=== PATIENT | female | born 1930 | race Hispanic/Latino ===

== ENCOUNTER 2017-09-05 08:53 | Day surgery (SDC) | payer OTHER ==
[2017-09-04 12:21] VITALS: BP 140/67
[2017-09-04 12:25] LABS: BASOPHILS % (AUTO) 1.1 % (0.0-5.0); EOSINOPHILS % (AUTO) 1.8 % (0.0-8.0); HEMATOCRIT 40.4 % (36-48); LYMPHOCYTES % (AUTO) 16.2 % (21.0-51.0); MEAN CORPUSCULAR HGB CONC 32.8 g/dL (32.0-36.0); MEAN CORPUSCULAR VOLUME 85.4 fL (79-99); MONOCYTES % (AUTO) 9.2 % (3.0-13.0); NEUTROPHILS % (AUTO) 71.7 % (40.0-77.0); PLATELET COUNT (AUTO) 252 K/uL (130-400); RED BLOOD CELL COUNT(AUTO) 4.73 MIL/uL (4.00-5.50); RED CELL DISTRIBUTION WIDTH 15.5 % (11.0-15.5); WHITE BLOOD COUNT (AUTO) 9.1 K/uL (4.8-10.8)
[2017-09-04 12:35] LABS: CREATININE 1.7 mg/dL (0.5-1.5); POTASSIUM 5.5 mmol/L (3.5-5.1)
[2017-09-04 12:38] LABS: INR 1.29 (0.85-1.15); PARTIAL THROMBOPLASTIN TIME 33.1 SEC (26.3-35.5); PROTHROMBIN TIME 13.5 SEC (9.6-11.6)
[~2017-09-05] VITALS: Ht 181.6 cm; Wt 56.9 kg
[~2017-09-05 08:53] MED LIST: CEPH500T PO; DIGO125T17 PO; DRON400T2 PO; FURO20TA6 PO; FURO40TA5 PO; FURO40TA7 PO; IPRA3AMP24 NEB; METO-408 PO; POTA20TA82 PO; RIVA15TA PO; SODIUM CHLORIDE 0.9% 1000ML 1,000 ML IV SCH
[2017-09-05 09:00] VITALS: BP 161/70
== END 2017-09-05 12:45 | disposition home or self-care (01) ==
LOC: DAH 08:53
PROVIDERS: ATTEND Internal Medicine Cardiovascular Disease
DX: I48.92 Unspecified atrial flutter (principal); I48.91 Unspecified atrial fibrillation; Z98.890 Other specified postprocedural states; Z79.899 Other long term (current) drug therapy; I44.2 Atrioventricular block, complete; J44.9 Chronic obstructive pulmonary disease, unspecified; E78.5 Hyperlipidemia, unspecified; N18.3 Chronic kidney disease, stage 3 (moderate)
CPT/HCPCS: 36415; 80048; 85025; 85610; 85730; 92960; 93005; A4606; J7030; 99156

== ENCOUNTER 2018-05-07 00:27 | Emergency (ER) | payer OTHER ==
[~2018-05-07 00:27] MED LIST changes: -FURO40TA5 PO; -SODIUM CHLORIDE 0.9% 1000ML 1,000 ML IV SCH
[2018-05-07 00:50] LABS: BASOPHILS % (AUTO) 0.9 % (0.0-5.0); EOSINOPHILS % (AUTO) 1.3 % (0.0-8.0); HEMATOCRIT 36.3 % (36-48); LYMPHOCYTES % (AUTO) 7.3 % (21.0-51.0); MEAN CORPUSCULAR HEMOGLOBIN 28.2 pg (27.0-33.0); MEAN CORPUSCULAR HGB CONC 33.2 g/dL (32.0-36.0); MONOCYTES % (AUTO) 4.3 % (3.0-13.0); NEUTROPHILS % (AUTO) 86.2 % (40.0-77.0); NUCLEATED RED BLOOD CELLS 0.2 % (0.0-0.19); PLATELET COUNT (AUTO) 103 K/uL (130-400); RED BLOOD CELL COUNT(AUTO) 4.27 MIL/uL (4.00-5.50); RED CELL DISTRIBUTION WIDTH 15.3 % (11.0-15.5); WHITE BLOOD COUNT (AUTO) 8.2 K/uL (4.8-10.8)
[2018-05-07 01:03] LABS: CREATININE 1.9 mg/dL (0.5-1.5); POTASSIUM 4.2 mmol/L (3.5-5.1)
[2018-05-07 01:08] LABS: ALBUMIN 2.9 g/dL (3.5-5.0); BILIRUBIN,TOTAL 0.9 mg/dL (0.2-1.0); TOTAL PROTEIN, SERUM 6.4 g/dL (6.0-8.3)
[2018-05-07 01:54] LABS: APPEARANCE,URINE Turbid (CLEAR); BILIRUBIN,URINE Negative (NEGATIVE); COLOR,URINE Yellow (YELLOW); GLUCOSE, URINE (UA) Negative (NEGATIVE); KETONES,URINE Negative (NEGATIVE); LEUKOCYTE ESTERASE ,URINE Large (NEGATIVE); NITRATE,URINE Positive (NEGATIVE); OCCULT BLOOD,URINE Large (NEGATIVE); PROTEIN,URINE POS 1+ (NEGATIVE)
[2018-05-07 01:57] LABS: B-TYPE NATRIURETIC PEPTIDE 478 pg/mL (0-100)
[2018-05-07] MEDS ORDERED: OSELTAMIVIR PHOSPHATE 75 MG CAP ONE (02:30)
[2018-05-07 02:31] LABS: BACTERIA,URINE Many /HPF (None Seen); WBC,URINE TNTC /HPF (0-1)
[2018-05-07] MEDS ORDERED: CEFTRIAXONE SODIUM 1 GM ONE (03:00)
== END 2018-05-07 03:44 | disposition home or self-care (01) ==
LOC: EDH 00:27
DX: J10.1 Influenza due to other identified influenza virus with other respiratory manifestations (principal); N30.00 Acute cystitis without hematuria; I48.91 Unspecified atrial fibrillation; N18.3 Chronic kidney disease, stage 3 (moderate); J44.9 Chronic obstructive pulmonary disease, unspecified; F32.9 Major depressive disorder, single episode, unspecified; E78.5 Hyperlipidemia, unspecified; Z90.49 Acquired absence of other specified parts of digestive tract; Z96.649 Presence of unspecified artificial hip joint
CPT/HCPCS: 36415; 71046; 80053; 81001; 82550; 83880; 84484; 85025; 87077; 87088; 87186; 87804 ×2; 87880; 93005; 96374; 99284; J0696

== ENCOUNTER 2018-08-16 15:40 | Inpatient (IN) | payer OTHER ==
[~2018-08-16] VITALS: Ht 149.9 cm; Wt 56.4 kg
[2018-08-16 16:25] LABS: BASOPHILS % (AUTO) 0.3 % (0.0-5.0); EOSINOPHILS % (AUTO) 2.8 % (0.0-8.0); HEMATOCRIT 36.5 % (36-48); LYMPHOCYTES % (AUTO) 18.2 % (21.0-51.0); MEAN CORPUSCULAR HEMOGLOBIN 28.5 pg (27.0-33.0); MEAN CORPUSCULAR HGB CONC 33.4 g/dL (32.0-36.0); MEAN CORPUSCULAR VOLUME 85.4 fL (79-99); MONOCYTES % (AUTO) 10.5 % (3.0-13.0); NEUTROPHILS % (AUTO) 68.2 % (40.0-77.0); PLATELET COUNT (AUTO) 148 K/uL (130-400); RED BLOOD CELL COUNT(AUTO) 4.28 MIL/uL (4.00-5.50); RED CELL DISTRIBUTION WIDTH 16.3 % (11.0-15.5); WHITE BLOOD COUNT (AUTO) 6.2 K/uL (4.8-10.8)
[2018-08-16] MEDS ORDERED: ALBUTEROL SULFATE 0.083% 2.5 MG/3 ML INH IH ONE (16:26)
[2018-08-16 16:40] LABS: CREATININE 1.4 mg/dL (0.5-1.5); INR 0.99 (0.85-1.15); PARTIAL THROMBOPLASTIN TIME 28.2 SEC (26.3-35.5); POTASSIUM 5.1 mmol/L (3.5-5.1); PROTHROMBIN TIME 10.4 SEC (9.6-11.6)
[2018-08-16 16:45] LABS: ALBUMIN 3.3 g/dL (3.5-5.0); BILIRUBIN,TOTAL 0.4 mg/dL (0.2-1.0); TOTAL PROTEIN, SERUM 6.2 g/dL (6.0-8.3)
[2018-08-16] MEDS ORDERED: AZITHROMYCIN 250 MG TABLET PO ONE (17:24)
[2018-08-16] MEDS ORDERED: FUROSEMIDE 10 MG/ML 2ML VIAL ONE (17:24)
[2018-08-16] MEDS ORDERED: CEFTRIAXONE SODIUM 1 GM ONE (17:24)
[2018-08-16 17:39] LABS: APPEARANCE,URINE Clear (CLEAR); BILIRUBIN,URINE Negative (NEGATIVE); COLOR,URINE Yellow (YELLOW); GLUCOSE, URINE (UA) Negative (NEGATIVE); KETONES,URINE Negative (NEGATIVE); LEUKOCYTE ESTERASE ,URINE Moderate (NEGATIVE); NITRATE,URINE Negative (NEGATIVE); OCCULT BLOOD,URINE Nonhemolyzed Trace (NEGATIVE); PROTEIN,URINE Negative (NEGATIVE)
[2018-08-16] MEDS ORDERED: ENOXAPARIN SODIUM 30 MG/0.3 ML SQ ONE (17:50)
[2018-08-16 17:51] LABS: BACTERIA,URINE Few /HPF (None Seen); RBC,URINE 0-1 /HPF (0-1); SQUAMOUS EPITHELIAL CELL,UR 0-2 /HPF (0-2)
[2018-08-16] MEDS ORDERED: SODIUM CHLORIDE 0.9% 10 ML VIAL IVP PRN (18:45)
[2018-08-16] MEDS ORDERED: ACETAMINOPHEN 325 MG TAB PO PRN (18:45)
[2018-08-16] MEDS ORDERED: IPRATROPIUM/ALBUTEROL SULFATE 3 ML SOLUTION IH PRN (18:45)
[2018-08-16] MEDS ORDERED: GLUCAGON 1MG KIT 1 MG ML IM PRN (19:00)
[2018-08-16] MEDS ORDERED: DEXTROSE 50%-WATER 50 ML DISP.SYRIN IV PRN (19:00)
[2018-08-16] MEDS ORDERED: APIXABAN 2.5 MG TABLET PO ONE (19:29)
[2018-08-16] MEDS: INSULIN R PO SS1 SQ SCH (21:00)
[2018-08-16 22:58] VITALS: BP 145/74
[2018-08-16] MEDS: IPRATROPIUM/ALBUTEROL SULFATE 3 ML SOLUTION IH SCH (23:00)
[2018-08-16] MEDS ORDERED: DRON400T2 PO (23:01)
[2018-08-16] MEDS ORDERED: APIX2.5T PO (23:02)
[2018-08-17 00:11] VITALS: BP 145/74
[2018-08-17 05:20] VITALS: BP 122/49
[2018-08-17] MEDS: INSULIN R PO SS1 SQ SCH (06:10)
[2018-08-17] MEDS: IPRATROPIUM/ALBUTEROL SULFATE 3 ML SOLUTION IH SCH ×4 (06:18→23:11)
[2018-08-17 08:00] VITALS: BP 149/52
[2018-08-17] MEDS ORDERED: ENOXAPARIN SODIUM 30 MG/0.3 ML SQ SCH (09:00)
[2018-08-17] MEDS: ***HM***Metoprolol Succinate 25 MG PO SCH (09:00)
[2018-08-17] MEDS: APIXABAN 2.5 MG TABLET PO SCH ×2 (09:13→20:49)
[2018-08-17] MEDS: CEFTRIAXONE SODIUM 1 GM IVP SCH (09:14)
[2018-08-17] MEDS: AZITHROMYCIN 500MG+NS 250ML 250 ML IV SCH (09:14)
[2018-08-17] MEDS: METHYLPREDNISOLONE SOD SUCC 125MG/2ML VIAL IVP SCH ×2 (09:15→20:49)
[2018-08-17 12:00] VITALS: BP 110/77
--- NOTE | 2018-08-17 14:58 | NUR ---
Initial: Met with pt and dtr (Kathryn) this afternoon to discuss dcp. Pt states that she lives w her son. Prior to admission she was independent w ambulation and ADLs. She has at home a nebulizer, walker, cane and wc if needed. Per pt her dtr provides transportation where needed. Pt states that she feels safe and comfortable to return home at [place]. Will continue to follow and wait for Md recommendations. Addendum: 08/17/18 at 1501 by PEDRO QUINTERO CM Amended: Links added.
[2018-08-17 16:00] VITALS: BP 125/62
[2018-08-17 19:15] VITALS: BP 132/65
[2018-08-18] VITALS (7 sets, daily range): BP systolic 102–149; BP diastolic 45–65
[2018-08-18 05:21] LABS: HEMATOCRIT 33.1 % (36-48); MEAN CORPUSCULAR HEMOGLOBIN 28.6 pg (27.0-33.0); MEAN CORPUSCULAR HGB CONC 33.6 g/dL (32.0-36.0); MEAN CORPUSCULAR VOLUME 85.2 fL (79-99); PLATELET COUNT (AUTO) 145 K/uL (130-400); RED BLOOD CELL COUNT(AUTO) 3.89 MIL/uL (4.00-5.50); RED CELL DISTRIBUTION WIDTH 16.4 % (11.0-15.5); WHITE BLOOD COUNT (AUTO) 10.4 K/uL (4.8-10.8)
[2018-08-18 05:32] LABS: CREATININE 1.9 mg/dL (0.5-1.5); POTASSIUM 4.3 mmol/L (3.5-5.1)
[2018-08-18] MEDS: INSULIN HUMULIN R 100 UNIT/ML 3ML SQ SCH (06:07)
[2018-08-18] MEDS: IPRATROPIUM/ALBUTEROL SULFATE 3 ML SOLUTION IH SCH ×4 (06:17→23:22)
--- NOTE | 2018-08-18 07:30 | NUR ---
DR. SCHWAB ON TO SEE PT. WANTS SERVICES TRANSFERRED OVER TO DR. DARDEN,
[2018-08-18] MEDS: AZITHROMYCIN 500MG+NS 250ML 250 ML IV SCH (08:02)
[2018-08-18] MEDS: CEFTRIAXONE SODIUM 1 GM IVP SCH (08:03)
[2018-08-18] MEDS: APIXABAN 2.5 MG TABLET PO SCH ×2 (08:03→20:19)
[2018-08-18] MEDS ORDERED: DIGOXIN 125 MCG TABLET PO SCH (09:00)
[2018-08-18] MEDS: ***HM***Metoprolol Succinate 25 MG PO SCH (09:00)
[2018-08-18] MEDS: DRONEDARONE HYDROCHLORIDE 400 MG TABLET PO SCH ×2 (17:00→17:03)
--- NOTE | 2018-08-18 18:00 | NUR ---
SHIFT ASSESSMENT. UP AD OSWALDO IN ROOM, NO C/O WHATSOEVER. FAMILY MEMBER AT BEDSIDE AT ALL TIMES.
[2018-08-19 00:22] VITALS: BP 130/60
[2018-08-19 04:30] VITALS: BP 124/60
[2018-08-19] MEDS: INSULIN HUMULIN R 100 UNIT/ML 3ML SQ SCH (06:00)
[2018-08-19] MEDS: IPRATROPIUM/ALBUTEROL SULFATE 3 ML SOLUTION IH SCH ×2 (07:02→11:08)
[2018-08-19 07:30] VITALS: BP 134/65
--- NOTE | 2018-08-19 07:40 | NUR ---
ALERT AND STABLE, MADE NO COMPLAINT. FAMILY AT THE BEDSIDE.
[2018-08-19] MEDS: AZITHROMYCIN 500MG+NS 250ML 250 ML IV SCH (08:25)
[2018-08-19] MEDS: APIXABAN 2.5 MG TABLET PO SCH (08:25)
[2018-08-19] MEDS: DRONEDARONE HYDROCHLORIDE 400 MG TABLET PO SCH (08:25)
[2018-08-19] MEDS: CEFTRIAXONE SODIUM 1 GM IVP SCH (08:26)
[2018-08-19] MEDS: ***HM***Metoprolol Succinate 25 MG PO SCH (08:29)
--- NOTE | 2018-08-19 13:13 | NUR ---
DISCHARGE INSTRUCTIONS WERE PROVIDED TO THE PATIENT WITH FOLLOW-UP APPOINTMENT AND PRESCRIPTION AND SHE VERBALIZED UNDERSTANDING. IV ACCESS WAS REMOVED. AND THE PATIENT WILL LEAVE THE UNIT AFTER SHE EATS.
--- NOTE | 2018-08-19 13:30 | NUR ---
LEFT THE UNIT IN STABLE CONDITION VIA W/C.
[2018-08-20 21:45] VITALS: BP 158/72
[2019-01-02] MEDS ORDERED: DIGO250T84 PO (02:07)
[2019-01-02] MEDS ORDERED: FURO20TA4 PO (02:07)
[2019-01-02] MEDS ORDERED: DIGO125T87 PO (02:07)
[2019-01-05] MEDS ORDERED: POLY17PO4 PO (06:47)
== END 2018-08-19 13:30 | disposition home or self-care (01) | DRG 190 ==
LOC: EDH 15:40 → EDHIP 17:34 → 3DH 22:28
PROVIDERS: ADMIT Internal Medicine; ATTEND Internal Medicine
DX: J44.1 Chronic obstructive pulmonary disease with (acute) exacerbation (principal); J18.9 Pneumonia, unspecified organism; J44.0 Chronic obstructive pulmonary disease with (acute) lower respiratory infection; I12.9 Hypertensive chronic kidney disease with stage 1 through stage 4 chronic kidney disease, or unspecified chronic kidney disease; E78.5 Hyperlipidemia, unspecified; F32.9 Major depressive disorder, single episode, unspecified; M13.0 Polyarthritis, unspecified; N18.9 Chronic kidney disease, unspecified; R73.9 Hyperglycemia, unspecified
CPT/HCPCS: 36415; 71045; 80048; 80053; 81001; 82948; 83880; 84484; 85025; 85027; 85610; 85730; 93005; 94640; 94664; G0378; J0456; J0696; J1650; J1815; J1940; J2930

== ENCOUNTER 2019-01-05 23:34 | Observation (INO) | payer OTHER ==
[~2019-01-05] VITALS: Ht 149.9 cm; Wt 55.3 kg
[~2019-01-05 23:34] MED LIST changes: +APIX2.5T PO; -CEPH500T PO; -DIGO125T17 PO; +DIGO125T87 PO; +DIGO250T84 PO; +FURO20TA4 PO; -FURO20TA6 PO; -FURO40TA7 PO; +POLY17PO4 PO; -POTA20TA82 PO; -RIVA15TA PO
[2019-01-05 23:56] LABS: BASOPHILS % (AUTO) 0.4 % (0.0-5.0); EOSINOPHILS % (AUTO) 5.7 % (0.0-8.0); HEMATOCRIT 32.8 % (36-48); LYMPHOCYTES % (AUTO) 10.7 % (21.0-51.0); MEAN CORPUSCULAR HEMOGLOBIN 29.4 pg (27.0-33.0); MEAN CORPUSCULAR VOLUME 86.3 fL (79-99); NEUTROPHILS % (AUTO) 74.2 % (40.0-77.0); PLATELET COUNT (AUTO) 137 K/uL (130-400); RED CELL DISTRIBUTION WIDTH 14.9 % (11.0-15.5); WHITE BLOOD COUNT (AUTO) 8.8 K/uL (4.8-10.8)
[2019-01-06 00:06] LABS: CREATININE 1.4 mg/dL (0.5-1.5); POTASSIUM 4.5 mmol/L (3.5-5.1)
[2019-01-06 00:10] LABS: ALBUMIN 2.8 g/dL (3.5-5.0); BILIRUBIN,TOTAL 1.2 mg/dL (0.2-1.0); TOTAL PROTEIN, SERUM 6.3 g/dL (6.0-8.3)
[2019-01-06] MEDS ORDERED: FUROSEMIDE 10 MG/ML 4ML VIAL ONE (00:32)
[2019-01-06 00:41] LABS: INR 1.14 (0.85-1.15); PROTHROMBIN TIME 11.9 SEC (9.6-11.6)
[2019-01-06 01:14] LABS: APPEARANCE,URINE Clear (CLEAR); BILIRUBIN,URINE Negative (NEGATIVE); COLOR,URINE Yellow (YELLOW); GLUCOSE, URINE (UA) Negative (NEGATIVE); KETONES,URINE Negative (NEGATIVE); LEUKOCYTE ESTERASE ,URINE Trace (NEGATIVE); NITRATE,URINE Negative (NEGATIVE); OCCULT BLOOD,URINE Negative (NEGATIVE); PH,URINE 6.5 (5.0-8.0); PROTEIN,URINE Negative (NEGATIVE)
[2019-01-06 01:26] LABS: BACTERIA,URINE Rare /HPF (None Seen); RBC,URINE None Seen /HPF (0-1); SQUAMOUS EPITHELIAL CELL,UR Few /HPF (0-2); WBC,URINE None Seen /HPF (0-1)
[2019-01-06 01:35] LABS: INFLUENZA TYPE A NEGATIVE FOR TYPE A (NEG); INFLUENZA TYPE B NEGATIVE FOR TYPE B (NEG)
[2019-01-06] MEDS ORDERED: IPRATROPIUM/ALBUTEROL SULFATE 3 ML SOLUTION IH ONE (04:55)
[2019-01-06] MEDS ORDERED: POTASSIUM CHLORIDE 20MEQ/100ML 100 ML IV PRN (06:15)
[2019-01-06] MEDS ORDERED: POTASSIUM CHLORIDE 10% ELIXIR 20 MEQ/15 ML UDCUP PO PRN (06:15)
[2019-01-06] MEDS ORDERED: POTASSIUM CHLORIDE 20 MEQ ERTAB PO PRN (06:15)
[2019-01-06] MEDS ORDERED: LIDOCAINE HCL-MPF 1% 2ML VIAL IV PRN (06:15)
[2019-01-06] MEDS ORDERED: POLYETHYLENE GLYCOL 3350 17 GM POWD.PACK PO PRN (06:30)
[2019-01-06 07:36] VITALS: BP 123/54
[2019-01-06] MEDS ORDERED: ***HM***Metoprolol Succinate 12.5 MG PO SCH (09:00)
[2019-01-06] MEDS: DRONEDARONE HYDROCHLORIDE 400 MG TABLET PO SCH ×2 (09:36→17:54)
[2019-01-06] MEDS: APIXABAN 2.5 MG TABLET PO SCH ×2 (09:36→21:48)
[2019-01-06] MEDS: FUROSEMIDE 40 MG TABLET PO SCH (09:36)
[2019-01-06] MEDS: IPRATROPIUM/ALBUTEROL SULFATE 3 ML SOLUTION IH SCH ×3 (11:23→23:47)
[2019-01-06 11:42] VITALS: BP 155/64
[2019-01-06] MEDS ORDERED: DIGOXIN 250 MCG TABLET PO SCH (12:00)
--- NOTE | 2019-01-06 13:05 | NUR ---
INITIAL MET W PT AND DAUGHTER AT BEDSIDE, PT KNOWN TO THIS CM FROM LAST ADMISSION; READMIT, FLUID OVERLOAD LIVES ALONE, MANY FAMILY IN AREA, ALL HELPFUL; NO PROVIDERS, NO DME, IS INDPENDENT IN ADLS , CURRENTLY WITH DAUGHTER SAYING WITH HER, CHERELLE BALL TO SAME SETTING, PMD IS KAT[place], VISITS REGULARLY Addendum: 01/06/19 at 1434 by ANUSHA VERDUZCO RN CM Amended: Links added.
--- NOTE | 2019-01-06 14:28 | NUR ---
DR MURPHY PAGED AND RETURN CALL SON VLADIMIR ALEXANDER ASKING TO SPEAP TO HIM ABOUT MOTHER HOUSE SURPERVISER TALKED WITH PATIENT AND SHE GAVE VERBAL PERMISSION FOR THE DR MURPHY TO REVIEW MOTHER STATUS WITH SON . SON GIVEN THE PHONE AND DR MURPHY REVIEWED CASE WITH HIM
[2019-01-06 15:54] VITALS: BP 120/67
--- NOTE | 2019-01-06 17:30 | NUR ---
DR MURPHY IN TO SEE PATIENT NO NEW ORDERERS RECEIVED
[2019-01-06 19:52] VITALS: BP 123/50
[2019-01-06] MEDS: HOME MEDICATION 1 EACH PO SCH (21:00)
[2019-01-06 23:38] VITALS: BP 123/51
[2019-01-07 04:00] VITALS: BP 134/49
[2019-01-07 05:07] LABS: HEMATOCRIT 30.9 % (36-48); MEAN CORPUSCULAR HEMOGLOBIN 29.4 pg (27.0-33.0); MEAN CORPUSCULAR HGB CONC 34.4 g/dL (32.0-36.0); MEAN CORPUSCULAR VOLUME 85.5 fL (79-99); NUCLEATED RED BLOOD CELLS 0.1 % (0.0-0.19); PLATELET COUNT (AUTO) 139 K/uL (130-400); RED BLOOD CELL COUNT(AUTO) 3.61 MIL/uL (4.00-5.50); RED CELL DISTRIBUTION WIDTH 14.6 % (11.0-15.5); WHITE BLOOD COUNT (AUTO) 6.2 K/uL (4.8-10.8)
[2019-01-07] MEDS: IPRATROPIUM/ALBUTEROL SULFATE 3 ML SOLUTION IH SCH ×2 (05:13→11:08)
[2019-01-07 05:28] LABS: ALBUMIN 2.3 g/dL (3.5-5.0); BILIRUBIN,TOTAL 1.3 mg/dL (0.2-1.0); CREATININE 1.6 mg/dL (0.5-1.5); POTASSIUM 3.8 mmol/L (3.5-5.1); TOTAL PROTEIN, SERUM 5.6 g/dL (6.0-8.3)
--- NOTE | 2019-01-07 06:12 | NUR ---
KATHERINE POOLE rounded: Seen and examined pt. Told pt to stay one more day for observation of left arm pain and for antibiotic therapy. Ordered the ff: 1. Discontinue current IVF once consumed 2. Terminated PICC line and insert a new peripheral IV site for ABT and to call him if pain to left arm persist after PICC line was removed. Pt. verbalized understanding. Orders carried out. Addendum: 01/07/19 at 0636 by FREDERIC GARBER RN RN ABOVE NOTE IS ERROR ENTRY - THIS NOTE IS INTENDED TO ANOTHER PATIENT.
[2019-01-07 07:24] VITALS: BP 107/45
--- NOTE | 2019-01-07 08:15 | NUR ---
DR DARDEN ROUNDED ON PATIENT ORDERS FOR ONE TIME ROCEPHIN 1 GRAM IV , THEN PATIENT MAY BE DISCHARGE AFTER NEXT BREATHING TREATMENT
[2019-01-07] MEDS: DRONEDARONE HYDROCHLORIDE 400 MG TABLET PO SCH (08:41)
[2019-01-07] MEDS: APIXABAN 2.5 MG TABLET PO SCH (08:41)
[2019-01-07] MEDS: FUROSEMIDE 40 MG TABLET PO SCH (08:41)
[2019-01-07] MEDS ORDERED: CEFTRIAXONE SODIUM 1 GM IVP SCH (08:45)
[2019-01-07] MEDS: HOME MEDICATION 1 EACH PO SCH (09:00)
[2019-01-07] MEDS ORDERED: CEFTRIAXONE SODIUM 1 GM IVP ONE (11:15)
[2019-01-07] MEDS ORDERED: PHARMACY COMMUNICATION MISC SCH (11:15)
[2019-01-07 11:24] VITALS: BP 123/49
--- NOTE | 2019-01-07 14:00 | NUR ---
PATIENT AND DAUGHTER DISCHARGE INSTRUCTIONS AND VERBALIZED UNDERSTANDING IV REMOVED WITH PRESSURE HELD TO SITE TILL BLEEDING CONTROLLED AND SITE DRESSED TELEMETRY REMOVE AND UNIT NOTIFIED OF DISCHARGE. PATIENT TO FOLLOW-UP WITH DR DARDEN TOMORROW W AND BRING ALL OUT PATIENT MEDICATIONS TO THAT OFFICE VISIT. NO QUESTIONS OR CONCERNS AT THIS TIME.
[2019-01-08] MEDS ORDERED: CEFTRIAXONE SODIUM 1 GM IVP ONE (08:00)
[2019-01-08] MEDS ORDERED: DIGOXIN 125 MCG TABLET PO SCH (09:00)
== END 2019-01-07 14:53 | disposition home or self-care (01) ==
LOC: EDH 23:34 → EDHIP 01-06 03:47 → 4BH 01-06 05:43
PROVIDERS: ADMIT Internal Medicine; ATTEND Internal Medicine
DX: K85.90 Acute pancreatitis without necrosis or infection, unspecified (principal); I12.9 Hypertensive chronic kidney disease with stage 1 through stage 4 chronic kidney disease, or unspecified chronic kidney disease; N18.3 Chronic kidney disease, stage 3 (moderate); E11.22 Type 2 diabetes mellitus with diabetic chronic kidney disease; E46 Unspecified protein-calorie malnutrition; E63.8 Other specified nutritional deficiencies; E78.5 Hyperlipidemia, unspecified; I25.10 Atherosclerotic heart disease of native coronary artery without angina pectoris; I48.91 Unspecified atrial fibrillation; J44.1 Chronic obstructive pulmonary disease with (acute) exacerbation; M15.9 Polyosteoarthritis, unspecified; F32.9 Major depressive disorder, single episode, unspecified; Z79.899 Other long term (current) drug therapy
CPT/HCPCS: 36415 ×2; 71045; 80053 ×2; 81001; 82550; 83605; 83880; 84484; 85025; 85027; 85610; 85730; 87804 ×2; 93005; 94640 ×6; 94664; 96374; 99284; G0378 ×34; J0696; J1940; 96372

== ENCOUNTER 2019-09-11 06:01 | Day surgery (SDC) | payer OTHER ==
[~2019-09-11] VITALS: Ht 149.9 cm; Wt 58.4 kg
[2019-09-11] VITALS (10 sets, daily range): BP systolic 100–132; BP diastolic 44–72
[~2019-09-11 06:01] MED LIST changes: -DIGO125T87 PO; -DIGO250T84 PO; +FLUT1BLS3 IH; -FURO20TA4 PO; +FURO40TA5 PO; -POLY17PO4 PO
--- NOTE | 2019-09-11 08:00 | NUR ---
PRE OP PT WAITING IN ROOM IN NO DISTRESS. PT ORIENTED TO ROOM, CALL LIGHT WITH IN REACH AND BED IN LOWEST POSITION. 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 WILL CONTINUE TO MONITOR PT.
[2019-09-11 08:11] LABS: BASOPHILS % (AUTO) 1.3 % (0.0-5.0); EOSINOPHILS % (AUTO) 3.5 % (0.0-8.0); HEMATOCRIT 39.9 % (36-48); LYMPHOCYTES % (AUTO) 24.2 % (21.0-51.0); MEAN CORPUSCULAR HEMOGLOBIN 28.6 pg (27.0-33.0); MEAN CORPUSCULAR HGB CONC 31.3 g/dL (32.0-36.0); MEAN CORPUSCULAR VOLUME 91.3 fL (79-99); MONOCYTES % (AUTO) 8.9 % (3.0-13.0); NEUTROPHILS % (AUTO) 61.8 % (40.0-77.0); PLATELET COUNT (AUTO) 177 K/uL (130-400); RED BLOOD CELL COUNT(AUTO) 4.37 MIL/uL (4.00-5.50); RED CELL DISTRIBUTION WIDTH 15.2 % (11.0-15.5); WHITE BLOOD COUNT (AUTO) 5.9 K/uL (4.8-10.8)
[2019-09-11 08:20] LABS: CREATININE 1.9 mg/dL (0.5-1.5); POTASSIUM 4.5 mmol/L (3.5-5.1)
[2019-09-11] MEDS ORDERED: SODIUM CHLORIDE 0.9% 1000ML 1,000 ML IV ONE (08:35)
[2019-09-11] MEDS ORDERED: LIDOCAINE PF 2% 5ML ABBOJECT ONE (10:08)
[2019-09-11] MEDS ORDERED: SUCCINYLCHOLINE CHLORIDE 20 MG/ML 10 ML VIAL ONE (10:08)
[2019-09-11] MEDS ORDERED: PROPOFOL 10 MG/ML 20ML VIAL IV ONE (10:09)
--- NOTE | 2019-09-11 11:00 | NUR ---
POST PROCEDURE CARDIOVERSION AT BEDSIDE WITH ANESTHESIA PERFORMED BY DR MUKHERJEE. TIME OUT DONE AT 1017 START TIME AT 1020 SHOCK TIME AT 1021 EXTERNAL SHOCK 100 JOULES. FINISHED PROCEDURE TIME 1030 RECOVERY STARTED AT 1030 PT TOLERATED WELL WITH NO DISCOMFORTS. PT CONVERTED, V/S STABLE, BOTH DR MUKHERJEE AND COLUMBA DICKSON SHIPPING AND RECEIVING WEIGHER OUT OF ROOM AT 1035. SPOKE TO DAUGHTER MELL CARRION ABOUT OUTCOME OF PROCEDURE. PT WILL BE DISCHARGED WHEN FULLY AWAKE AND STABLE
--- NOTE | 2019-09-11 11:30 | NUR ---
DISCHARGE PT IN STABLE CONDITION TAKEN OUT VIA W/C. DISCHARGE INSTRUCTIONS GIVEN TO DAUGHTER. UNDERSTANDING VOICED
== END 2019-09-11 11:30 | disposition home or self-care (01) ==
LOC: DAH 06:01
PROVIDERS: ATTEND Internal Medicine Cardiovascular Disease
DX: I48.4 Atypical atrial flutter (principal); J44.9 Chronic obstructive pulmonary disease, unspecified; E78.5 Hyperlipidemia, unspecified; I12.9 Hypertensive chronic kidney disease with stage 1 through stage 4 chronic kidney disease, or unspecified chronic kidney disease; N18.9 Chronic kidney disease, unspecified; Z96.642 Presence of left artificial hip joint; I48.0 Paroxysmal atrial fibrillation; Z95.0 Presence of cardiac pacemaker
CPT/HCPCS: 36415; 80048; 85025; 92960; 93005 ×2; A4216; A4221; A4222; A4223 ×3; A4606; A4615; A4663; J2001; J2704; J7030; 99156; J0330

== ENCOUNTER 2019-09-14 08:48 | Observation (INO) | payer OTHER ==
[~2019-09-14] VITALS: Ht 149.9 cm; Wt 53.6 kg
[2019-09-14 10:07] LABS: BASOPHILS % (AUTO) 0.6 % (0.0-5.0); EOSINOPHILS % (AUTO) 2.3 % (0.0-8.0); MEAN CORPUSCULAR HGB CONC 31.5 g/dL (32.0-36.0); MEAN CORPUSCULAR VOLUME 88.8 fL (79-99); MONOCYTES % (AUTO) 7.7 % (3.0-13.0); PLATELET COUNT (AUTO) 163 K/uL (130-400); RED BLOOD CELL COUNT(AUTO) 4.39 MIL/uL (4.00-5.50); RED CELL DISTRIBUTION WIDTH 14.9 % (11.0-15.5); WHITE BLOOD COUNT (AUTO) 8.2 K/uL (4.8-10.8)
[2019-09-14 10:53] LABS: APPEARANCE,URINE Clear (CLEAR); BILIRUBIN,URINE Negative (NEGATIVE); COLOR,URINE Yellow (YELLOW); GLUCOSE, URINE (UA) Negative (NEGATIVE); KETONES,URINE Negative (NEGATIVE); LEUKOCYTE ESTERASE ,URINE Small (NEGATIVE); NITRATE,URINE Negative (NEGATIVE); OCCULT BLOOD,URINE Negative (NEGATIVE); PROTEIN,URINE Negative (NEGATIVE); UROBILINOGEN,URINE 0.2 mg/dL (0.2-1.0)
[2019-09-14 11:16] LABS: B-TYPE NATRIURETIC PEPTIDE 850 pg/mL (0-100)
[2019-09-14 11:18] LABS: BACTERIA,URINE Rare /HPF (None Seen); RBC,URINE 0-1 /HPF (0-1); SQUAMOUS EPITHELIAL CELL,UR Rare /HPF (0-2)
[2019-09-14 11:19] LABS: CREATININE 1.9 mg/dL (0.5-1.5); POTASSIUM 4.7 mmol/L (3.5-5.1)
[2019-09-14 11:23] LABS: ALBUMIN 3.5 g/dL (3.5-5.0); BILIRUBIN,TOTAL 0.9 mg/dL (0.2-1.0); TOTAL PROTEIN, SERUM 6.6 g/dL (6.0-8.3)
[2019-09-14] MEDS ORDERED: OSELTAMIVIR PHOSPHATE 75 MG CAP ONE (11:31)
[2019-09-14] MEDS ORDERED: SODIUM CHLORIDE 0.9% 100 ML IV ONE (11:45)
[2019-09-14] MEDS ORDERED: CEFTRIAXONE SODIUM 1 GM ONE (11:45)
[2019-09-14] MEDS ORDERED: ALBUTEROL INHALER 90MCG/INH IH ONE (12:35)
[2019-09-14] MEDS ORDERED: POTASSIUM CHLORIDE 10% ELIXIR 20 MEQ/15 ML UDCUP PO PRN (12:45)
[2019-09-14] MEDS ORDERED: LIDOCAINE HCL-MPF 1% 2ML VIAL IJ PRN (12:45)
[2019-09-14] MEDS ORDERED: POTASSIUM CHLORIDE 20 MEQ ERTAB PO PRN (12:45)
[2019-09-14] MEDS ORDERED: POTASSIUM CHLORIDE 20MEQ/100ML 100 ML IV PRN (12:45)
[2019-09-14 13:32] VITALS: BP 150/66
[2019-09-14] MEDS ORDERED: FURO20TA4 PO (13:42)
[2019-09-14 13:45] LABS: FERRITIN 82 ng/mL (15-150)
[2019-09-14 16:00] VITALS: BP 142/66
[2019-09-14] MEDS: FUROSEMIDE 10 MG/ML 4ML VIAL IVP SCH (16:31)
[2019-09-14 19:43] VITALS: BP 122/52
[2019-09-14] MEDS: DRONEDARONE HYDROCHLORIDE 400 MG TABLET PO SCH (20:23)
[2019-09-14] MEDS: APIXABAN 2.5 MG TABLET PO SCH (20:23)
[2019-09-15 00:16] VITALS: BP 109/44
[2019-09-15 04:04] VITALS: BP 105/46
[2019-09-15] MEDS: FUROSEMIDE 10 MG/ML 4ML VIAL IVP SCH ×2 (05:01→15:34)
[2019-09-15 06:02] LABS: BASOPHILS % (AUTO) 0.9 % (0.0-5.0); EOSINOPHILS % (AUTO) 4.1 % (0.0-8.0); HEMATOCRIT 37.4 % (36-48); LYMPHOCYTES % (AUTO) 12.3 % (21.0-51.0); MEAN CORPUSCULAR HEMOGLOBIN 28.5 pg (27.0-33.0); MEAN CORPUSCULAR HGB CONC 31.8 g/dL (32.0-36.0); MEAN CORPUSCULAR VOLUME 89.7 fL (79-99); MONOCYTES % (AUTO) 10.4 % (3.0-13.0); PLATELET COUNT (AUTO) 165 K/uL (130-400); RED BLOOD CELL COUNT(AUTO) 4.17 MIL/uL (4.00-5.50); RED CELL DISTRIBUTION WIDTH 14.7 % (11.0-15.5); WHITE BLOOD COUNT (AUTO) 6.4 K/uL (4.8-10.8)
[2019-09-15 06:27] LABS: CREATININE 1.9 mg/dL (0.5-1.5); POTASSIUM 4.4 mmol/L (3.5-5.1)
[2019-09-15 07:22] VITALS: BP 130/61
[2019-09-15] MEDS: APIXABAN 2.5 MG TABLET PO SCH ×2 (08:33→20:51)
[2019-09-15] MEDS: ASPIRIN 81MG TAB.CHEW PO SCH ×2 (08:33→08:39)
[2019-09-15] MEDS: DRONEDARONE HYDROCHLORIDE 400 MG TABLET PO SCH ×2 (08:33→20:52)
--- NOTE | 2019-09-15 10:36 | NUR ---
LINDA PLAN PATIENT IN COVID UNIT. POSITIVE FOR FLU A AND B. INFORMATION FROM LAST ADMISSION. DISABLED SON LIVES WITH PATIENT. FAMILY HELPS THEM. INDEPENDENT, EDMOND LOVELACE. PLAN IS TO RETURN HOME. CM WILL CONTINUE TO FOLLOW. Addendum: 09/15/19 at 1049 by JUAAN MUKHERJEE RN CM Amended: Links added.
[2019-09-15 11:19] VITALS: BP 99/50
[2019-09-15] MEDS: OSELTAMIVIR PHOSPHATE 75 MG CAP PO SCH (11:40)
[2019-09-15] MEDS: CEFTRIAXONE SODIUM 1 GM IVP SCH (11:40)
[2019-09-15 15:41] VITALS: BP 128/56
[2019-09-15 20:51] VITALS: BP 125/67
[2019-09-16] VITALS (7 sets, daily range): BP systolic 99–152; BP diastolic 51–72
[2019-09-16] MEDS: FUROSEMIDE 10 MG/ML 4ML VIAL IVP SCH ×2 (03:38→16:41)
--- NOTE | 2019-09-16 04:00 | NUR ---
REFUSED LASIX PT STATES WHEN HER BLOOD PRESSURE IS TOO LOW SHE WILL NOT TAKE HER LASIX BECAUSE HER BLOOD PRESSURE WILL DROP MORE. BP 114/57 PT REFUSED LASIX
[2019-09-16] MEDS: DRONEDARONE HYDROCHLORIDE 400 MG TABLET PO SCH ×2 (08:09→20:10)
[2019-09-16] MEDS: APIXABAN 2.5 MG TABLET PO SCH ×2 (08:09→20:10)
[2019-09-16] MEDS: ASPIRIN 81MG TAB.CHEW PO SCH (08:40)
[2019-09-16] MEDS: CEFTRIAXONE SODIUM 1 GM IVP SCH (12:01)
[2019-09-16] MEDS: OSELTAMIVIR PHOSPHATE 75 MG CAP PO SCH (12:01)
[2019-09-16] MEDS ORDERED: METOPROLOL SUCCINATE 50 MG TAB.SR.24H PO SCH (21:00)
[2019-09-16] MEDS ORDERED: APIXABAN 2.5 MG TABLET PO SCH (21:00)
--- NOTE | 2019-09-16 21:00 | NUR ---
PTS DAUGHTER SPOKE TO MELL (PTS DAUGHTER), INFORMED HER OF PHYSICIANS (BESSIE MUKHERJEE,THU) TO BE ON HER MOTHERS PLAN OF CARE. MELL STATES SHE KNOWS HER MOTHER HAS CYSTS IN HER KIDNEYS BUT KATALINA SUGGESTED NO MEDICAL TREATMENT BACK IN 2019. DAUGHTER AWARE STILL PENDING COVID RESULTS.
[2019-09-17 03:42] VITALS: BP 106/54
[2019-09-17] MEDS: FUROSEMIDE 10 MG/ML 4ML VIAL IVP SCH (04:00)
--- NOTE | 2019-09-17 04:20 | NUR ---
PT REQUESTING LASIX TO BE GIVEN LATER AND NOT NOW IT IS SCHEDULED AT 0400.
[2019-09-17 06:58] LABS: BASOPHILS % (AUTO) 0.8 % (0.0-5.0); EOSINOPHILS % (AUTO) 9.2 % (0.0-8.0); HEMATOCRIT 43.8 % (36-48); LYMPHOCYTES % (AUTO) 20.9 % (21.0-51.0); MEAN CORPUSCULAR HEMOGLOBIN 28.3 pg (27.0-33.0); MEAN CORPUSCULAR VOLUME 88.5 fL (79-99); MONOCYTES % (AUTO) 8.7 % (3.0-13.0); NEUTROPHILS % (AUTO) 60.2 % (40.0-77.0); PLATELET COUNT (AUTO) 210 K/uL (130-400); RED BLOOD CELL COUNT(AUTO) 4.95 MIL/uL (4.00-5.50); RED CELL DISTRIBUTION WIDTH 13.9 % (11.0-15.5); WHITE BLOOD COUNT (AUTO) 5.9 K/uL (4.8-10.8)
[2019-09-17 07:29] LABS: ALBUMIN 3.2 g/dL (3.5-5.0); BILIRUBIN,TOTAL 0.6 mg/dL (0.2-1.0); POTASSIUM 4.4 mmol/L (3.5-5.1); TOTAL PROTEIN, SERUM 7.3 g/dL (6.0-8.3)
[2019-09-17 08:50] VITALS: BP 109/51
[2019-09-17] MEDS ORDERED: FAMOTIDINE 20MG TAB 20 MG TAB PO SCH (09:00)
[2019-09-17] MEDS: ASPIRIN 81MG TAB.CHEW PO SCH ×2 (09:00→09:17)
[2019-09-17] MEDS: DRONEDARONE HYDROCHLORIDE 400 MG TABLET PO SCH (09:18)
[2019-09-17] MEDS: APIXABAN 2.5 MG TABLET PO SCH (09:18)
[2019-09-17] MEDS ORDERED: AMOX-426 PO (10:08)
[2019-09-17] MEDS ORDERED: PRED20TA3 PO (10:08)
[2019-09-17] MEDS ORDERED: OSEL75 PO (10:08)
[2019-09-17] MEDS: CEFTRIAXONE SODIUM 1 GM IVP SCH (12:06)
[2019-09-17] MEDS: OSELTAMIVIR PHOSPHATE 75 MG CAP PO SCH (12:06)
--- NOTE | 2019-09-17 13:43 | NUR ---
INFO CONTACTED THE DAUGHTER MELL CARRION BY PHONE REGARDING DISCHARGE INFORMATION. DISCUSSED THE PREVENTING THE SPREAD OF CORONAVIRUS INFORMATION PACKED FROM THE CDC, DISCUSSED THE NEW PRESCRIPTIONS BEING SENT ELECTRONICALLY TO THE [facility] IN [place]. DISCUSSED THE FOLLOW UP APPOINTMENT TOMORROW WITH DR. DARDEN AT 3:0 PM. MS CARRION STATED SHE HAD NO QUESTIONS AT THIS TIME.
--- NOTE | 2019-09-17 14:02 | NUR ---
PATIENT DISCHARGE PATIENT DISCHARGE, IV DISCONTINUED, CATHLON INTACT, BLEEDING CONTROLLED, PATIENT TOLERATED WITHOUT INCIDENT. ADVISED PATIENT I HAD DISCUSSED THE DISCHARGE INFORMATION WITH HER DAUGHTER MELL AND THAT SHE WOULD BE HERE TO PICK HER UP ABOUT 1420 HOURS. PATIENT UNDERSTOOD.
[2019-09-18] MEDS ORDERED: TRELEGY ELLIPTA IH SCH (09:00)
[2019-09-18] MEDS ORDERED: FUROSEMIDE 20 MG TABLET PO SCH (09:00)
[2020-01-26] MEDS ORDERED: ALBU2.5V2 IH (11:48)
== END 2019-09-17 15:45 | disposition home or self-care (01) ==
LOC: EDH 08:48 → INTOOBSV 11:40 → EDHIP 11:40 → 2AH 13:25 → 2DH 09-15 17:53
PROVIDERS: ADMIT Internal Medicine; ATTEND Internal Medicine
DX: J10.1 Influenza due to other identified influenza virus with other respiratory manifestations (principal); J44.1 Chronic obstructive pulmonary disease with (acute) exacerbation; I13.0 Hypertensive heart and chronic kidney disease with heart failure and stage 1 through stage 4 chronic kidney disease, or unspecified chronic kidney disease; I50.23 Acute on chronic systolic (congestive) heart failure; N18.3 Chronic kidney disease, stage 3 (moderate); N17.9 Acute kidney failure, unspecified; R09.02 Hypoxemia; E87.6 Hypokalemia; I48.91 Unspecified atrial fibrillation; E78.5 Hyperlipidemia, unspecified; F32.9 Major depressive disorder, single episode, unspecified; Z20.828 Contact with and (suspected) exposure to other viral communicable diseases; Z87.891 Personal history of nicotine dependence; Z79.01 Long term (current) use of anticoagulants; Z95.0 Presence of cardiac pacemaker
CPT/HCPCS: 36415 ×4; 71045; 80048 ×2; 80053 ×2; 81001; 82550; 82728; 83605; 83615; 83880; 84145; 84484; 85025 ×4; 85378; 86140; 87088; 87633; 87635; 87804 ×2; 92960; 93005 ×3; 96374; 96375; 96376 ×3; 99285; A4216; A4221; A4222; A4223 ×3; A4606; A4615; A4663; G0378 ×15; J0696 ×4; J1940 ×3; J2001; J2704; J7030; 99156; J0330